=== PATIENT | male | born 2000 | race Caucasian/White ===

== ENCOUNTER 2023-01-04 21:37 | Emergency (ER) | payer BC ==
[~2023-01-04] VITALS: Ht 190.5 cm; Wt 72.7 kg
[2023-01-04 22:54] LABS: URINE HCG NEGATIVE
[2023-01-04 22:56] LABS: BILIRUBIN,URINE NEGATIVE (Neg); CLARITY,URINE CLEAR (Clear); COLOR,URINE YELLOW (Yellow); GLUCOSE, URINE NEGATIVE (Neg); KETONES,URINE NEGATIVE (Neg); LEUKOCYTE ESTERASE ,URINE NEGATIVE (Neg); NITRITES, URINE NEGATIVE (Neg); OCCULT BLOOD,URINE NEGATIVE (Neg); PROTEIN,URINE NEGATIVE (Neg); UROBILINOGEN,URINE 0.2 E.U/dL (0.2-1.0)
[2023-01-04 23:02] LABS: UA COLLECTION TYPE CLN CATCH MIDSTREAM
[2023-01-04 23:04] LABS: BASOPHILS % (AUTO) 0.5 % (0-1); EOSINOPHILS # (AUTO) 0.3 X10'3 (0-0.9); EOSINOPHILS % (AUTO) 3.3 % (0-6); HEMATOCRIT 44.5 % (42.0-52.0); LYMPHOCYTES # (AUTO) 3.3 X10'3 (1.1-4.8); LYMPHOCYTES % (AUTO) 37.5 % (21-51); MEAN CORPUSCULAR HEMOGLOBIN 29.8 PG (27.0-31.0); MEAN CORPUSCULAR HGB CONC 33.7 g/dL (33.0-36.5); MEAN CORPUSCULAR VOLUME 88.3 FL (78-98); MEAN PLATELET VOLUME 6.6 FL (7.4-10.4); MONOCYTES # (AUTO) 0.5 X10'3 (0-0.9); MONOCYTES % (AUTO) 5.9 % (2-12); NEUTROPHILS # (AUTO) 4.6 X10'3 (1.8-7.7); NEUTROPHILS % (AUTO) 52.8 % (42-75); PLATELET COUNT 289 X10'3 (140-440); RED BLOOD COUNT 5.04 X10'6 (4.70-6.10); RED CELL DISTRIBUTION WIDTH 13.3 % (11.5-14.5); WHITE BLOOD COUNT 8.7 X10'3 (4.5-11.0)
[2023-01-04 23:10] LABS: URINE AMPHETAMINE SCREEN NEGATIVE (Neg); URINE BARBITUATE SCREEN NEGATIVE (Neg); URINE BENZODIAZEPINES SCREEN NEGATIVE (Neg); URINE CANNABINOID SCREEN POSITIVE (Neg); URINE COCAINE SCREEN NEGATIVE (Neg); URINE METHADONE SCREEN NEGATIVE (Neg); URINE OPIATE SCREEN NEGATIVE (Neg); URINE PHENCYCLIDINE SCREEN NEGATIVE (Neg)
[2023-01-04 23:14] LABS: ALANINE AMINOTRANSFERASE 15 U/L (12-78); ALBUMIN 4.4 G/DL (3.4-5.0); ALBUMIN/GLOBULIN RATIO 1.3 (1.1-1.5); ALKALINE PHOSPHATASE 77 IU/L (46-116); ANION GAP 16 (8-16); ASPARTATE AMINO TRANSFERASE 28 U/L (10-37); BILIRUBIN,TOTAL 0.7 MG/DL (0.1-1.0); BLOOD UREA NITROGEN 14 MG/DL (7-18); BUN/CREATININE RATIO 14.3 (10.0-20.0); CALCIUM 9.1 MG/DL (8.5-10.1); CHLORIDE 104 MMOL/L (99-107); CREATININE 0.98 MG/DL (0.60-1.10); GLUCOSE 100 MG/DL (70-104); POTASSIUM 3.1 MMOL/L (3.5-5.1); SODIUM 145 MMOL/L (135-145); TOTAL CARBON DIOXIDE 25.1 MMOL/L (24-32); TOTAL PROTEIN 7.9 G/DL (6.4-8.2); eCRCL 121 ML/MIN; eGFR > 90 ML/MIN
[2023-01-04] MEDS ORDERED: NO HOME MEDS (23:21)
[2023-01-04 23:24] LABS: ETHANOL 74 MG/DL (<10); THYROID STIMULATING HORMONE 2.36 ulU/ml (0.34-4.50)
--- NOTE | 2023-01-04 23:27 | NUR ---
The patient is a 22 year old male who was moved to bed 20 in overflow from [facility]. He was very cooperative with the move. He denies any kind of medical problems. He denies surgical hx. He is a smoker and his drug screen was positive for THC and his BA was 74. He stated that he came to the ER requesting to be put on a mental health hold because he was suicidal. He stated the last attempt was at age 14 and he was hospitalized at that time. He stated that he lives alone in an apartment and is currently unemployed. He stated that he had a lot of stressors and when asked to name the top three he stated, "My deep desire for , my financial situation and my family life" He stated that he takes no medications.
--- NOTE | 2023-01-05 01:20 | NUR ---
The patient appears to be sleeping
[2023-01-05] MEDS ORDERED: POTASSIUM BICARB 20meq eff tab 20 MEQ TABLET.EFF PO ONE (02:05)
--- NOTE | 2023-01-05 02:27 | NUR ---
PACKET SENT TO [facility]
--- NOTE | 2023-01-05 02:59 | NUR ---
The patient appears to be sleeping
--- NOTE | 2023-01-05 05:03 | NUR ---
The patient appears to be sleeping
[2023-01-05 05:56] VITALS: BP 108/61; PULSE 60; RESP 16; O2SAT 98
--- NOTE | 2023-01-05 06:52 | NUR ---
Pt resting in bed eyes closed. Respirations equal and unlabored. No acute distress noted at this time.
--- NOTE | 2023-01-05 08:09 | NUR ---
Pt up eating breakfast tray. No acute distress noted at this time.
--- NOTE | 2023-01-05 09:00 | NUR ---
[facility] at bedside talking with pt.
--- NOTE | 2023-01-05 09:52 | NUR ---
Pt accepted to [facility] for voluntary hold. Mom to pick up attendant at 11 after discharge.
== END 2023-01-05 11:00 | disposition home or self-care (01) ==
LOC: ER 21:39 → EDSEX 21:39 → ER 01-05 11:00
DX: R45.851 Suicidal ideations (principal); Z20.822 Contact with and (suspected) exposure to COVID-19; F41.9 Anxiety disorder, unspecified; F17.200 Nicotine dependence, unspecified, uncomplicated
CPT/HCPCS: 36415; 80053; 80305; 80320; 81003; 81025; 84443; 85025; 87811; 99285

== ENCOUNTER 2024-07-16 15:53 | Emergency (ER) | payer BC, MEDICAID ==
[~2024-07-16] VITALS: Ht 190.5 cm; Wt 81.8 kg
[~2024-07-16 15:53] MED LIST: NO HOME MEDS
[2024-07-16 17:06] LABS: BASOPHILS % (AUTO) 0.3 % (0-1); EOSINOPHILS # (AUTO) 0.1 X10'3 (0-0.9); EOSINOPHILS % (AUTO) 0.8 % (0-6); HEMATOCRIT 41.2 % (42.0-52.0); HEMOGLOBIN 13.9 g/dl (14.0-17.9); LYMPHOCYTES # (AUTO) 2.7 X10'3 (1.1-4.8); LYMPHOCYTES % (AUTO) 30.8 % (21-51); MEAN CORPUSCULAR HEMOGLOBIN 29.4 PG (27.0-31.0); MEAN CORPUSCULAR HGB CONC 33.8 g/dL (33.0-36.5); MEAN PLATELET VOLUME 7.1 FL (7.4-10.4); MONOCYTES # (AUTO) 0.5 X10'3 (0-0.9); MONOCYTES % (AUTO) 5.7 % (2-12); NEUTROPHILS # (AUTO) 5.6 X10'3 (1.8-7.7); NEUTROPHILS % (AUTO) 62.4 % (42-75); PLATELET COUNT 287 X10'3 (140-440); RED BLOOD COUNT 4.74 X10'6 (4.70-6.10); WHITE BLOOD COUNT 8.9 X10'3 (4.5-11.0)
[2024-07-16 17:18] LABS: ALBUMIN 4.5 G/DL (3.4-5.0); ANION GAP 8 (8-16); BLOOD UREA NITROGEN 7 MG/DL (7-18); CALCIUM 9.1 MG/DL (8.5-10.1); CHLORIDE 103 MMOL/L (99-107); CREATININE 0.88 MG/DL (0.60-1.10); GLUCOSE 89 MG/DL (70-104); POTASSIUM 3.8 MMOL/L (3.5-5.1); SODIUM 141 MMOL/L (135-145); THYROID STIMULATING HORMONE 1.55 ulU/ml (0.34-4.50); TOTAL CARBON DIOXIDE 30.2 MMOL/L (24-32); eCRCL 149 ML/MIN; eGFR > 90 ML/MIN
[2024-07-16 17:31] LABS: ETHANOL < 10 MG/DL (<10)
[2024-07-16 19:38] LABS: BILIRUBIN,URINE NEGATIVE (Neg); CLARITY,URINE CLEAR (Clear); COLOR,URINE YELLOW (Yellow); GLUCOSE, URINE NEGATIVE (Neg); KETONES,URINE TRACE mg/dl (Neg); LEUKOCYTE ESTERASE ,URINE NEGATIVE (Neg); NITRITES, URINE NEGATIVE (Neg); OCCULT BLOOD,URINE NEGATIVE (Neg); PH,URINE 6.5 (4.8-8.0); PROTEIN,URINE NEGATIVE (Neg); UROBILINOGEN,URINE 0.2 E.U/dL (0.2-1.0)
[2024-07-16 19:44] LABS: UA COLLECTION TYPE CLN CATCH MIDSTREAM
[2024-07-16 19:46] LABS: URINE AMPHETAMINE SCREEN NEGATIVE (Neg); URINE BARBITUATE SCREEN NEGATIVE (Neg); URINE BENZODIAZEPINES SCREEN NEGATIVE (Neg); URINE CANNABINOID SCREEN POSITIVE (Neg); URINE COCAINE SCREEN NEGATIVE (Neg); URINE METHADONE SCREEN NEGATIVE (Neg); URINE OPIATE SCREEN NEGATIVE (Neg); URINE PHENCYCLIDINE SCREEN NEGATIVE (Neg)
[2024-07-16] MEDS: OLANZapine 5mg rapidly disint. tablet PO ONE (20:31)
[2024-07-17 07:12] VITALS: TEMP 98.8
[2024-07-17] MEDS ORDERED: diazepam 5mg tablet PO PRN (11:05)
[2024-07-17] MEDS: nicotine 14mg patch - 24hr TD ONE (11:22)
[2024-07-17] MEDS ORDERED: OLAN10TA3 PO (13:30)
[2024-07-17 13:39] VITALS: BP 105/63; PULSE 84; RESP 18; O2SAT 99
== END 2024-07-17 13:45 | disposition home or self-care (01) ==
LOC: ER 15:54
DX: R45.851 Suicidal ideations (principal); Z20.822 Contact with and (suspected) exposure to COVID-19
CPT/HCPCS: 36415; 80048; 80305; 80320; 81003; 84443; 85025; 87811; 99284